=== PATIENT | male | born 1985 ===

== ENCOUNTER → 2020-10-31 | Outpatient (CLI) | payer BC | END | disposition home or self-care (01) | LOC: Rad HDHVI 09:48 | PROVIDERS: ATTEND Internal Medicine Cardiovascular Disease | DX: R94.31 Abnormal electrocardiogram [ECG] [EKG] (principal) | CPT/HCPCS: 93306 ==

== ENCOUNTER → 2020-11-14 | Outpatient (CLI) | payer BC ==
[~2020-11-14] VITALS: Ht 172.7 cm; Wt 93.0 kg
== END | disposition home or self-care (01) ==
LOC: Rad HDHVI 13:51
PROVIDERS: ATTEND Internal Medicine Cardiovascular Disease
DX: R94.31 Abnormal electrocardiogram [ECG] [EKG] (principal); I10 Essential (primary) hypertension; Z82.49 Family history of ischemic heart disease and other diseases of the circulatory system
CPT/HCPCS: 78452; 93017; 96374; A9500